=== PATIENT | female | born 1995 | race African-American/Black ===

== ENCOUNTER 2019-12-08 11:45 | Inpatient (IN) | payer OTHER ==
[2019-12-08] MEDS: ELECTROLYTE-148 SOLN 1,000 ML IV SCH (13:00)
[2019-12-08 14:15] VITALS: BMI 37.6
[2019-12-08] MEDS ORDERED: BUTORPHANOL TARTRATE 1 MG/ML VIAL IVPB ONE (14:15)
[2019-12-08] MEDS ORDERED: PROMETHAZINE HCL 25 MG/1 ML VIAL IVPUSH ONE (14:15)
--- NOTE | 2019-12-08 14:19 | HP ---
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: Alzheimer's, CVA, Dementia, Migraine, Multiple Sclerosis, Peripheral Neuropathy, Parkinson's, Seizure, Syncope, TIA, Vertigo, Other Cardiovascular: No: AFIB, Aneurysm, Aortic Insufficiency, Aortic Stenosis, CAD, CHF, Deep Vein Thrombosis, HTN, Hyperlipdemia, [place], Mitral Insufficiency, Mitral Stenosis, Murmur, Pulmonary Hypertension, Other Pulmonary: No: Asthma, Bronchitis, Cancer, COPD, O2 Dependent, Pneumonia, Previously Intubated, Pulmonary Embolus, Pulmonary Fibrosis, Sleep Apnea, Other Gastrointestinal: No: Ascites, Cancer, Constipation, Crohn's Disease, Diverticulitis, Diverticulosis, Esophageal Varices, Gastritis, GERD, GI Bleed, Hemorrhoids, Hiatal Hernia, Inflamatory Bowel Disease, Irritable Bowel Disease, Pancreatitis, Peptic Ulcer Disease, Ulcerative Colitis, Other Hepatobiliary: No: Cirrhosis, Cholelithiasis, Cholecystitis, Choledocholithiasis, Hepatitis A, Hepatitis B, Hepatitis C, Other Renal/: No: Renal Failure, Renal Inusuff, BPH, Cancer, Hematuria, Hemodialysis, Neurogenic Bladder, Renal Calculi, UTI, Other Reproductive: No: Ectopic , Endometriosis, Fibroids, PID, Polycystic Ovary Syndrome, Postmenopausal, Other ...: 2 ...Para: 0 ...Term: 0 ...: 0 ...Spon : 0 ...Induced : 1 ...Living Children: 0 ...Multiple Gestation: 0 ...LMP: 03/11/19 ... Weeks Gestation by Dates: 38.6 ...EDC by Dates: 12/14/19 ...EDC by Sono: 12/14/19 Heme/Onc: No: Anemia, B12 Deficiency, Bleeding Disorder, Cancer, Current Chemotherapy, Current Radiation Therapy, Hemochromatosis, Hypercoaguable State, Myeloproliferative Synd, Sickle Cell Disease, Sickle Cell Trait, Thrombocytopenia, Other Infectious Disease: No: AIDS, C-Diff, Herpes Zoster, HIV, MRSA, STD's, Tuberculosis, VREF, Other Psych: No: Addictions, Anxiety, Bipolar, Depression, Panic, Psychosis, Schizophrenia, Other Musculoskeletal: No: Bursitis, Chronic low back pain, Hemiparesis, Hemiplegia, Osteoarthritis, Paraplegia, Other Rheumatology: No: Fibromyalgia, Gout, Lupus, Rheumatoid Arthritis, Sarcoidosis, Vasculitis, Other ENT: No: Allergic Rhinitis, Sinusitis, Other Endocrine: No: Richardson's Disease, Ana M's Disease, Diabetes Insipidus, Diabetes Mellitus, Hyperparathyroidism, Hyperthyroidism, Hypothyroidism, O steopenia, SIADH, Other Dermatology: No: Basal Cell, Cellulitis, Eczema, Melanoma, Psoriasis, Squamous Cell, Other - Past Surgical History Past Surgical History: No: None, AAA Repair, AICD, Amputation, Appendectomy, Arthrosocopy, AV Fistula/Graft, Bariatric Surgery, Breast Biopsy, Bypass, CABG, Carotid Endarterectomy, Cataract Removal, Cholecystectomy, Colectomy, Colonoscopy, Colostomy, Craniotomy, , Cystectomy, Hernia Repair, Hysterectomy, Ileal Conduit, Ileosotomy, Joint Replacement, Kidney Transplant, Laminectomy, Liver Transplant, Mastectomy, Nephrectomy, Oopherectomy, Orchiectomy, Permanent Pacemaker, Prostatectomy, Splenectomy, Stent, Thoracotomy, TURP, Tonsillectomy, Tubal Ligation, Upper Endoscopy, Valve Repla cement, Vasectomy, Vein Stripping/Ligation Hx Myomectomy: No Hx Transabdominal Cerclage: No - Advance Directives Advance Directives: Yes: Living Will - Smoking History Smoking history: Never smoked Have you smoked in the past 12 months: No - Alcohol/Substance Use Hx Alcohol Use: No History of Substance Use: reports: None - Social History Usual Living Arrangement: Yes: With Significant Other Do you think of yourself as: Straight/Heterosexual ADL: Independent History of Recent Travel: No Family Medical History Family History: Denies Review of Systems - Review of Systems Constitutional: reports: No Symptoms Eyes: reports: No Symptoms HENT: reports: No Symptoms Neck: reports: No Symptoms Cardiovascular: reports: No Symptoms Respiratory: reports: No Symptoms Gastrointestinal: reports: No Symptoms Genitourinary: reports: No Symptoms Breasts: reports: No Symptoms Reported Musculoskeletal: reports: No Symptoms Integumentary: reports: No Symptoms Neurological: reports: No Symptoms Endocrine: reports: No Symptoms Hematology/Lymphatic: reports: No Symptoms Psychiatric: reports: No Symptoms Physical Exam - Maternity Vital Signs: Vital Signs Temperature 98.3 F 12/08/19 14:00 Pulse Rate 93 H 12/08/19 14:00 Respiratory Rate 18 12/08/19 14:00 Blood Pressure 103/51 L 12/08/19 14:00 O2 Sat by Pulse Oximetry (%) Constitutional: Yes: Well Nourished, No Distress, Calm Eyes: Yes: WNL, Conjunctiva Clear, EOM Intact HENT: Yes: WNL, Atraumatic, Normocephalic Neck: Yes: WNL, Supple, Trachea Midline Cardiovascular: Yes: WNL, Regular Rate and Rhythm Lungs: Clear to auscultation Breast(s): Yes: WNL - Abdominal Exam/OB Fundal Height: 38 Number of Fetuses: Single Presentation: Vertex Contractions: Yes Regularity: Regular Intensity: Moderate Monitor Mode: External Heart Rate (range): 150 Heart Rate Location: [facility] Category: I Accelerations: Uniform Decelerations: None - Vaginal Exam/OB Vaginal Bleeding: No Speculum Exam: No Dilatation (cm): 4 Effacement (%): 70 Amniotic Membrane Status: Intact Presentation: Vertex/Position Station: -1 - Physical Exam Musculoskeletal: Yes: WNL Extremities: Yes: WNL Edema: Yes Edema: LUE: 1+, RUE: 1+, LLE: 1+, RLE: 1+ Integumentary: Yes: WNL Deep Tendon Reflex Grade: Normal +2 ...Motor Strength: WNL Psychiatric: Yes: WNL, Alert, Oriented Hemorrhage Risk Assessment - Risk Factors Medium Risk Factors: Yes: None High Risk Factors: Yes: None Risk Score: 1 Risk Level: Medium Risk Assessment/Plan admit for laboring process, will augment w pitocin
[2019-12-08] MEDS: OXYTOCIN 30 UNITS in 0.9% NS 30 UNIT/500 ML INFUS.BAG IVPB SCH (14:45)
[2019-12-08 15:45] LABS: BASO % 0.6 % (0-2.0); EOS % 1.1 % (0-4.5); HEMATOCRIT 36.3 % (32.4-45.2); HEMOGLOBIN 11.9 GM/dL (10.7-15.3); LYMPH % 14.5 % (8-40); MCH 27.9 pg (25.7-33.7); MCHC 32.8 g/dl (32.0-36.0); MEAN CELL VOLUME 85.2 fl (80-96); MEAN PLT VOLUME 8.5 fl (7.5-11.1); MONO % 5.1 % (3.8-10.2); NEUT % 78.7 % (42.8-82.8); PLATELET COUNT 258 K/MM3 (134-434); RBC 4.27 M/mm3 (3.60-5.2); RDW 14.8 % (11.6-15.6); WHITE BLOOD COUNT 11.4 K/mm3 (4.0-10.0)
[2019-12-08 15:54] LABS: INR 0.96 (0.83-1.09); PROTHROMBIN TIME (PATIENT) 11.3 SEC (9.7-13.0)
[2019-12-08 15:57] LABS: ACTIVATED PTT 28.2 SECONDS (25.2-36.5)
[2019-12-08 16:14] LABS: BLOOD UREA NITROGEN 8.7 mg/dL (7-18); CREATININE 0.6 mg/dL (0.55-1.3); POTASSIUM 3.9 mmol/L (3.5-5.1)
[2019-12-08] MEDS ORDERED: BUTORPHANOL TARTRATE 1 MG/ML VIAL ONE ×2 (16:54)
[2019-12-08] MEDS ORDERED: PROMETHAZINE HCL 25 MG/1 ML VIAL ONE (16:55)
--- NOTE | 2019-12-08 16:55 | PN ---
Progress Note (short form) - Note Progress Note: 445 pm, uc q 5 min, nst reactive, decline stadol, nor epidural, continue pitocin,
[2019-12-08] MEDS ORDERED: OXYTOCIN 20 UNITS in 0.9% NS 20 UNIT/1,000 ML INFUS.BAG IV ONE (19:22)
[2019-12-08] MEDS ORDERED: LIDOCAINE HCL 1% PRESERVATIVE FREE - 30ML VIAL ONE (19:22)
[2019-12-08] MEDS: OXYTOCIN 20 UNITS in 0.9% NS 20 UNIT/1,000 ML INFUS.BAG IV SCH (19:45)
[2019-12-08] MEDS ORDERED: BENZOCAINE 28 GM HEMORRHOIDAL OINTMENT TP PRN (20:10)
[2019-12-08] MEDS ORDERED: BENZOCAINE 20% 57 GM BOTTLE TP PRN (20:10)
[2019-12-08] MEDS ORDERED: oxyCODONE HCL 5 MG TABLET PO PRN (20:10)
[2019-12-08] MEDS ORDERED: BISACODYL 10 MG SUPP.RECT RC PRN (20:10)
[2019-12-08] MEDS ORDERED: METHYLERGONOVINE MALEATE 0.2 MG/1 ML AMP IM PRN (20:10)
[2019-12-08] MEDS ORDERED: WITCH HAZEL 50% (TUCKS) 40 PAD/JAR PAD TP PRN (20:10)
--- NOTE | 2019-12-08 20:14 | PN ---
Progress Note (short form) - Note Progress Note: 630 pm 8 cm, uc q 3 min, reactive, pushing soon
--- NOTE | 2019-12-08 20:15 | PN ---
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
[2019-12-09] MEDS: ACETAMINOPHEN 325 MG TABLET (FP) PO PRN ×3 (05:01→21:44)
[2019-12-09] MEDS: IBUPROFEN 600 MG TABLET (FP) PO PRN ×3 (05:01→21:44)
--- NOTE | 2019-12-09 08:11 | DS ---
Physical Exam-STATION SUPERVISOR Vital Signs: Vital Signs Temperature 98.4 F 12/09/19 04:00 Pulse Rate 89 12/09/19 04:00 Respiratory Rate 20 12/09/19 04:00 Blood Pressure 114/70 12/09/19 04:00 O2 Sat by Pulse Oximetry (%) 99 12/08/19 21:30 Constitutional: Yes: Well Nourished, No Distress, Calm Eyes: Yes: WNL, Conjunctiva Clear, EOM Intact HENT: Yes: WNL, Atraumatic, Normocephalic Neck: Yes: WNL, Supple, Trachea Midline Cardiovascular: Yes: WNL, Regular Rate and Rhythm Respiratory: Yes: WNL, Regular, CTA Bilaterally Gastrointestinal: Yes: WNL, Normal Bowel Sounds, Soft ...Rectal Exam: Yes: WNL Renal/: Yes: WNL Pelvis: Yes: WNL External Genitalia: Yes: Normal Internal Exam Deferred: Yes Vaginal Exam: Yes: Normal Cervix: Yes: Normal Uterus: Yes: Normal Adnexa: Normal: Bilateral ....Post : Yes: Uterus firm, Uterus non-tender Breast(s): Yes: WNL Musculoskeletal: Yes: WNL Extremities: Yes: WNL Edema: Yes Edema: LUE: 1+, RUE: 1+, LLE: 1+, RLE: 1+ Integumentary: Yes: WNL Wound/Incision: Yes: Clean/Dry, Well Approximated Neurological: Yes: WNL, Alert, Oriented ...Motor Strength: WNL Psychiatric: Yes: WNL, Alert, Oriented Labs: CBC, BMP 12/08/19 15:30 12/08/19 15:30 Delivery - Delivery Vaginal Delivery: No Problems Type of Anesthesia: Local Episiotomy/Laceration: None, 1st degree EBL (cc): 200 Delivery, Single - Stages of Labor Date 1st Stage Initiatied: 12/07/19 Time 1st Stage Initiated: 22:00 Date 2nd Stage Initiated: 12/08/19 Time 2nd Stage Initiated: 19:20 Date of Delivery: 12/08/19 Time of Delivery: 19:40 Time Placenta Delivered: 19:45 Placenta: Yes: Spontaneous - Condition of Infant 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 - 1 Minute Total Score: 9 5 Minutes Total Score: 9 - [place] Feeding Plan Initial Plan: Exclusive throughout hospitalization Discharge Summary Problems reviewed: Yes Reason For Visit: LABOR ADMIT Procedures: Principal: Other Procedures: uneventful Condition: Good - Instructions Diet, Activity, Other Instructions: Physical activity Resume your normal everyday activity as tolerated no heavy lifting or exercise until seen by your surgeon. You may walk unlimited ja of and climb stairs. You may resume driving the car when you feel safe and comfortable behind the wheel. No sexual activity as instructed. Wound care If you have a bandage, leave it on, and keep dry for 48-72 hours. After that time discard the outer bandage. If they are tapes on the skin under the out of bandage leave them in place. They will peel off in the next 7 to 10 days. Do Not Peel them off. You may shower the day after surgery. If there are tapes present on the skin, you may shower over them. Diet There are no dietary restrictions. Eat healthy, high-fiber foods. Drink 6 to 8 glasses of liquid each day. This will assist in keeping your bowels are regular. Pain management You may take Tylenol or acetaminophen or Ibuprofen (for example, Motrin, Advil etc.) from my pain prescription medication is ordered should be taken as prescribed for moderate to severe pain. Call MD for any of the following:call dr lomas for 6 weeks Severe pain not relieved by medication Fever of 101 or higher Excessive bleeding or drainage on dressing Inability to urinate Disposition: HOME - Home Medications Comprehensive Discharge Medication List: Ambulatory Orders No122/Iron/Folic Acid [ Multi Tablet] 1 each PO DAILY 12/08/19 Prescription Drug Monitoring Program (I-STOP) results: I-STOP reviewed and no issues identified
[2019-12-09 08:54] LABS: BASO % 0.2 % (0-2.0); EOS % 0.5 % (0-4.5); HEMATOCRIT 33.3 % (32.4-45.2); HEMOGLOBIN 10.8 GM/dL (10.7-15.3); LYMPH % 13.8 % (8-40); MCH 27.4 pg (25.7-33.7); MCHC 32.5 g/dl (32.0-36.0); MEAN CELL VOLUME 84.5 fl (80-96); MEAN PLT VOLUME 8.6 fl (7.5-11.1); MONO % 6.1 % (3.8-10.2); NEUT % 79.4 % (42.8-82.8); PLATELET COUNT 228 K/MM3 (134-434); RBC 3.94 M/mm3 (3.60-5.2); RDW 15.2 % (11.6-15.6); WHITE BLOOD COUNT 16.2 K/mm3 (4.0-10.0)
[2019-12-09] MEDS: PRENATAL VITAMINS W/ FOLIC ACID TABLET (FP) PO SCH (10:39)
[2019-12-09] MEDS: OXYTOCIN 30 UNITS in 0.9% NS 30 UNIT/500 ML INFUS.BAG IVPB SCH (21:43)
[2019-12-09] MEDS: ELECTROLYTE-148 SOLN 1,000 ML IV SCH (21:43)
[2019-12-09] MEDS: OXYTOCIN 20 UNITS in 0.9% NS 20 UNIT/1,000 ML INFUS.BAG IV SCH (21:43)
[2019-12-09] MEDS ORDERED: SENNOSIDES/DOCUSATE COMBO (SENNA PLUS) TABLET (UD) PO PRN (22:00)
[2019-12-10] MEDS: IBUPROFEN 600 MG TABLET (FP) PO PRN ×2 (01:50→10:29)
[2019-12-10] MEDS: ACETAMINOPHEN 325 MG TABLET (FP) PO PRN ×2 (01:50→10:30)
[2019-12-10 08:07] LABS: BASO % 0.5 % (0-2.0); EOS % 2.4 % (0-4.5); HEMATOCRIT 31.5 % (32.4-45.2); HEMOGLOBIN 10.2 GM/dL (10.7-15.3); LYMPH % 23.7 % (8-40); MCH 27.4 pg (25.7-33.7); MCHC 32.3 g/dl (32.0-36.0); MEAN CELL VOLUME 84.9 fl (80-96); MEAN PLT VOLUME 8.5 fl (7.5-11.1); MONO % 6.1 % (3.8-10.2); NEUT % 67.3 % (42.8-82.8); PLATELET COUNT 218 K/MM3 (134-434); RBC 3.71 M/mm3 (3.60-5.2); RDW 15.3 % (11.6-15.6); WHITE BLOOD COUNT 11.4 K/mm3 (4.0-10.0)
[2019-12-10] MEDS: PRENATAL VITAMINS W/ FOLIC ACID TABLET (FP) PO SCH (10:30)
[2019-12-10 11:19] VITALS: BP 102/64; PULSE 74; TEMP 97.8
== END 2019-12-10 11:45 | disposition home or self-care (01) | DRG 560 ==
LOC: JDEL 11:45 → JLDR 13:30 → J3W 23:21
PROVIDERS: ADMIT Obstetrics & Gynecology; ATTEND Obstetrics & Gynecology
PROC: 10E0XZZ Delivery of Products of Conception, External Approach (ICD-10-PCS; principal; 2019-12-08)
DX: O70.0 First degree perineal laceration during delivery (principal); Z3A.38 38 weeks gestation of pregnancy; Z37.0 Single live birth
CPT/HCPCS: 36415; 59025; 59409; 80048; 85025; 85610; 85730; 86780; 86850; 86900; 86901; 87389; U0003

== ENCOUNTER 2022-09-27 20:16 | Emergency (ER) | payer OTHER ==
[2022-09-27 20:20] VITALS: BP 105/70; PULSE 83; RESP 18; TEMP 98.2; BMI 37.1
[2022-09-27] MEDS ORDERED: ACETAMINOPHEN 500 MG TABLET (FP) PO ONE (21:41)
[2022-09-27] MEDS ORDERED: ACETAMINOPHEN 325 MG TABLET (FP) ONE (21:55)
[2022-09-27] MEDS ORDERED: KETOROLAC TROMETHAMINE 30 MG/1 ML VIAL IM ONE (23:19)
[2022-09-27] MEDS ORDERED: KETOROLAC TROMETHAMINE 30 MG/1 ML VIAL ONE (23:22)
== END 2022-09-28 00:25 | disposition home or self-care (01) ==
LOC: JER 20:16
PROC: 3E0233Z Introduction of Anti-inflammatory into Muscle, Percutaneous Approach (ICD-10-PCS; principal; 2022-09-27)
DX: R07.9 Chest pain, unspecified (principal)
CPT/HCPCS: 71046-TC-FY; 84703; 93005; 93010; 99285-25

== ENCOUNTER 2023-04-04 00:21 | Emergency (ER) | payer OTHER ==
[2023-04-04 00:29] VITALS: BP 123/58; PULSE 96; RESP 16; TEMP 98.1; BMI 35.1
[2023-04-04] MEDS ORDERED: ACETAMINOPHEN 500 MG TABLET (FP) ONE (00:52)
[2023-04-04] MEDS ORDERED: ACETAMINOPHEN 500 MG TABLET (FP) PO ONE (00:52)
== END 2023-04-04 01:41 | disposition home or self-care (01) ==
LOC: FER 00:21
DX: S00.83XA Contusion of other part of head, initial encounter (principal); R51.9 Headache, unspecified; R42 Dizziness and giddiness; R11.0 Nausea; R41.840 Attention and concentration deficit; X58.XXXA Exposure to other specified factors, initial encounter; Y93.9 Activity, unspecified; Y92.9 Unspecified place or not applicable
CPT/HCPCS: 70450-TC; 99284-25

== ENCOUNTER 2024-03-06 08:53 | Emergency (ER) | payer OTHER ==
[2024-03-06 09:02] VITALS: BP 106/55; PULSE 77; RESP 18; TEMP 97.7; BMI 36.0
[2024-03-06] MEDS ORDERED: METOCLOPRAMIDE HCL 10 MG TABLET (FP) PO ONE (10:00)
[2024-03-06] MEDS ORDERED: KETOROLAC TROMETHAMINE 30 MG/1 ML VIAL ONE (10:00)
[2024-03-06] MEDS: KETOROLAC TROMETHAMINE 30 MG/1 ML VIAL IM ONE (10:16)
[2024-03-06] MEDS: METOCLOPRAMIDE HCL 10 MG TABLET (FP) PO ONE (10:16)
== END 2024-03-06 11:46 | disposition home or self-care (01) ==
LOC: JER 08:53 → JERFT 08:53
PROC: 3E0133Z Introduction of Anti-inflammatory into Subcutaneous Tissue, Percutaneous Approach (ICD-10-PCS; principal; 2024-03-06)
DX: R51.9 Headache, unspecified (principal); M79.10 Myalgia, unspecified site; R09.81 Nasal congestion; J02.9 Acute pharyngitis, unspecified; R11.0 Nausea; J06.9 Acute upper respiratory infection, unspecified; Z20.822 Contact with and (suspected) exposure to COVID-19
CPT/HCPCS: 0241U-QW; 87651; 99284-25

== ENCOUNTER 2025-01-12 15:01 | Emergency (ER) | payer OTHER ==
[2025-01-12 15:11] VITALS: BP 109/68; PULSE 97; RESP 20; TEMP 98.6; BMI 38.0
[2025-01-12] MEDS ORDERED: DEXAMETHASONE SOD PHOSPHATE 10 MG/1 ML VIAL ONE (16:34)
[2025-01-12] MEDS ORDERED: ACETAMINOPHEN INJECTION 100 ML ONE (16:34)
[2025-01-12 16:36] LABS: ABSOLUTE IMMATURE GRANULOCYTES 0.07 x10^3/uL (0.0-0.031); BASOPHILS # 0.05 x10^3/uL (0.01-0.08); EOSINOPHIL % 1.5 % (0.7-5.8); EOSINOPHILS # 0.14 x10^3/uL (0.04-0.36); MCHC 31.5 g/dl (32.2-35.5); MEAN CELL VOLUME 87.9 fl (79.4-94.8); MEAN PLT VOLUME 9.5 fl (9.4-12.3); MONOCYTE # 0.56 x10^3/uL (0.24-0.86); MONOCYTE % 6.1 % (4.7-12.5); RDW 14.5 % (12.1-16.8)
[2025-01-12] MEDS: ACETAMINOPHEN 1000 MG/100 ML BAG IVPB ONE (16:40)
[2025-01-12] MEDS: SODIUM CHLORIDE 0.9% 500 ML INFUS.BAG IV ONE (16:40)
[2025-01-12] MEDS: DEXAMETHASONE SOD PHOSPHATE 10 MG/1 ML VIAL PO ONE (16:40)
[2025-01-12 17:03] LABS: GLUCOSE,RANDOM 86.0 mg/dL (74-106)
[2025-01-12 17:04] LABS: TOT PROT 7.9 g/dl (6.4-8.2)
[2025-01-12 17:05] LABS: CO2 26.0 mmol/L (21-32)
[2025-01-12 17:06] LABS: ALK PHOS 88.0 U/L (40-150)
[2025-01-12 17:09] LABS: CREATININE 0.82 mg/dL (0.55-1.3); SGOT/AST 24.0 U/L (5-34); SGPT/ALT 21.0 U/L (0-55)
== END 2025-01-12 18:17 | disposition home or self-care (01) ==
LOC: JER 15:01
PROC: 3E033NZ Introduction of Analgesics, Hypnotics, Sedatives into Peripheral Vein, Percutaneous Approach (ICD-10-PCS; principal; 2025-01-12)
DX: M79.632 Pain in left forearm (principal); M25.532 Pain in left wrist; R20.2 Paresthesia of skin; R51.9 Headache, unspecified; R53.83 Other fatigue
CPT/HCPCS: 36415; 80053; 85025; 99284-25; J1100